=== PATIENT | male | born 1940 | race Caucasian/White ===

== ENCOUNTER 2021-07-17 06:10 | Inpatient (IN) ==
[2021-07-17] MEDS ORDERED: CeFAZolin Syr 2,000MG/20 ML 2,000 MG/20 ML SYRINGE IVPB ONE (07:01)
[2021-07-17] MEDS ORDERED: Heparin 1,000 UNITS/500 mL 2,500 ML ONE (07:10)
[2021-07-17] MEDS ORDERED: Ringers Solution, Lactated 1,000 ML IVC SCH (07:15)
[2021-07-17] MEDS ORDERED: Lidocaine HCL 4 ML Topical Solution (Laryng-O-Jet Kit Sterile Pak) TP ONE (07:24)
[2021-07-17] MEDS ORDERED: *HR* Propofol 200 MG/20 ML VIAL IVP ONE (07:24)
[2021-07-17] MEDS ORDERED: Lidocaine -MPF 2% 5 ML VIAL ONE (07:24)
[2021-07-17] MEDS ORDERED: *HR* Rocuronium Bromide 50 MG/5 ML VIAL ONE (07:24)
[2021-07-17] MEDS ORDERED: Lidocaine -MPF 4% 5 ML AMPUL ONE (07:24)
[2021-07-17] MEDS ORDERED: *HR* Succinylcholine 200 MG/10 ML VIAL IVP ONE (07:24)
[2021-07-17] MEDS ORDERED: Ondansetron 4 MG/2 ML VIAL ONE (07:24)
[2021-07-17] MEDS ORDERED: *HR* FentaNYL (PF) 100 MCG/2 ML VIAL ONE (07:24)
[2021-07-17] MEDS ORDERED: Heparin 1,000 UNITS/500 mL 500 ML ONE (07:27)
[2021-07-17] MEDS ORDERED: *HR* HYDROmorphone PF 0.5 MG/0.5 ML SYRINGE IVP PRN (07:33)
[2021-07-17] MEDS ORDERED: ceFAZolin 1,000 MG, Sodium Chloride IRRigation 1,000 ML IR ONE (07:45)
[2021-07-17] MEDS ORDERED: EPHEDrine 50 MG/ML VIAL ONE (08:11)
[2021-07-17] MEDS ORDERED: Albumin Human 5% 12.5 GM/250 ML IV.SOLN ONE (12:41)
[2021-07-17] MEDS ORDERED: *HR* Metoprolol 5 MG/5 ML VIAL IVP ONE (12:55)
[2021-07-17] MEDS ORDERED: Albumin Human 5% 12.5 GM/250 ML IV.SOLN IVPB ONE (12:58)
[2021-07-17] MEDS: *HR* Metoprolol 5 MG/5 ML VIAL IVP ONE ×2 (13:18→13:20)
[2021-07-17 13:29] LABS: BUN/Creatinine Ratio 18 (6-26); Blood Urea Nitrogen 18 mg/dL (8-23); Calcium 8.2 mg/dL (8.6-10.3); Carbon Dioxide 22 mEq/L (23-29); Chloride 106 mEq/L (98-107); Glucose 171 mg/dL (70-105); Magnesium 1.7 mg/dL (1.6-2.6); Osmolality,Calculated 288 (280-300); Potassium 3.9 mEq/L (3.5-5.1); Sodium 136 mEq/L (136-145); Troponin I < 0.03 ng/mL (< 0.04); eGFR For African Americans > 60 (> 60); eGFR For Non-African Americans > 60 (> 60)
[2021-07-17] MEDS ORDERED: *HR* OxyCODONE Immed Rel 5 MG TABLET PO PRN (15:51)
[2021-07-17] MEDS ORDERED: 0.9 % Sodium Chloride 1,000 ML IVC SCH (15:51)
[2021-07-17] MEDS ORDERED: *HR* HYDROcodone/Acet 5/325 mg TABLET PO PRN (15:51)
[2021-07-17] MEDS ORDERED: Acetaminophen 325 MG TABLET PO PRN (15:51)
[2021-07-17] MEDS ORDERED: *HR* Labetalol 20 MG/4 ML SYRINGE IVP PRN (15:51)
[2021-07-17] MEDS ORDERED: Naloxone 0.4 MG/ML INJ IVP PRN (15:51)
[2021-07-17] MEDS: ceFAZolin 2,000 MG in 0.9 % Sodium Chloride 100 ML IVPB SCH (17:34)
[2021-07-18] MEDS: ceFAZolin 2,000 MG in 0.9 % Sodium Chloride 100 ML IVPB SCH ×2 (00:17→08:08)
[2021-07-18 02:13] LABS: Mean Corpuscular Volume 88.5 fL (83.0-100.0); Red Cell Distribution Width 13.9 % (11.5-14.5)
[2021-07-18 02:15] LABS: Hematocrit 34.5 % (37.5-50.1); Hemoglobin 11.6 g/dL (12.9-16.9); Immature Platelets 3.8 % (1.1-6.1); Mean Corpuscular HGB Conc 33.6 g/dL (31.6-35.5); Mean Corpuscular Hemoglobin 29.7 pg (28.0-33.3); Mean Platelet Volume 10.4 fL (9.4-12.4); Red Blood Count 3.9 M/mcL (4.19-5.50); White Blood Count 8.7 K/mcL (4.3-11.1)
[2021-07-18 02:34] LABS: BUN/Creatinine Ratio 14 (6-26); Blood Urea Nitrogen 16 mg/dL (8-23); Calcium 8.4 mg/dL (8.6-10.3); Carbon Dioxide 24 mEq/L (23-29); Chloride 105 mEq/L (98-107); Glucose 168 mg/dL (70-105); Osmolality,Calculated 285 (280-300); Sodium 135 mEq/L (136-145); eGFR For African Americans > 60 (> 60); eGFR For Non-African Americans > 60 (> 60)
[2021-07-18] MEDS ORDERED: Metoprolol XL (24 HR) Succ 50 MG TAB.ER.24H PO SCH (09:00)
[2021-07-18] MEDS ORDERED: Aspirin Enteric Coated 81 MG Tablet PO SCH (09:00)
[2021-07-18] MEDS ORDERED: lisinopriL 20 MG TABLET PO SCH (09:00)
[2021-07-18] MEDS ORDERED: Finasteride 5 MG TABLET PO SCH (09:00)
[2021-07-18] MEDS ORDERED: Perflutren Lipid Microsphere 1.3 ML in 0.9 % Sodium Chloride 8.7 ML IVP PRN (10:25)
[2021-07-18 15:40] VITALS: BP 181/47; PULSE 63; TEMP 98.9; O2SAT 100
== END 2021-07-18 18:45 | disposition home or self-care (01) | DRG 269 ==
LOC: SAMDAY 06:10 → 2NNU 15:48
PROVIDERS: ADMIT Surgery Vascular Surgery; ATTEND Surgery Vascular Surgery